=== PATIENT | female | born 1960 | race African-American/Black ===

== ENCOUNTER 2024-11-11 21:22 | Emergency (ER) | payer OTHER ==
[~2024-11-11] VITALS: Ht 167.6 cm; Wt 83.0 kg
[2024-11-11 21:52] VITALS: TEMP 37.1; O2SAT 98
[2024-11-12] MEDS: ACETAMINOPHEN 500MG TABLET PO ONE (00:20)
[2024-11-12] MEDS ORDERED: NAPR-1176 MT (01:16)
[2024-11-12 01:32] VITALS: BP 151/81; PULSE 63; RESP 18; O2SAT 100
== END 2024-11-12 01:34 | disposition home or self-care (01) ==
LOC: ER 21:22
DX: S00.03XA Contusion of scalp, initial encounter (principal); E11.9 Type 2 diabetes mellitus without complications; I10 Essential (primary) hypertension; Z79.1 Long term (current) use of non-steroidal anti-inflammatories (NSAID); Z79.899 Other long term (current) drug therapy; Z98.890 Other specified postprocedural states; Z88.7 Allergy status to serum and vaccine; W19.XXXA Unspecified fall, initial encounter; Y93.89 Activity, other specified; Y92.89 Other specified places as the place of occurrence of the external cause; Y99.8 Other external cause status
CPT/HCPCS: 99284